=== PATIENT | female | born 1990 | race Caucasian/White ===

== ENCOUNTER 2019-09-07 20:21 | Emergency (ER) | payer OTHER ==
[2019-09-07] MEDS ORDERED: ACETAMINOPHEN 325 MG TABLET (FP) PO ONE (20:27)
[2019-09-07] MEDS ORDERED: ACETAMINOPHEN 325 MG TABLET (FP) ONE (20:30)
[2019-09-07 20:51] VITALS: BP 147/85; PULSE 106; TEMP 98.4; BMI 25.6
[2019-09-07 21:02] LABS: BASO % 0.4 % (0-2.0); EOS % 1.2 % (0-4.5); HEMOGLOBIN 12.6 GM/dl (10.7-15.3); LYMPH % 20.5 % (8-40); MCH 33.5 pg (25.7-33.7); MCHC 33.9 g/dl (32.0-36.0); MEAN CELL VOLUME 98.8 fl (80-96); MEAN PLT VOLUME 8.5 fl (7.5-11.1); MONO % 5.7 % (3.8-10.2); NEUT % 72.2 % (42.8-82.8); PLATELET COUNT 359 K/MM3 (134-434); RBC 3.75 M/mm3 (3.60-5.2); RDW 11.5 % (11.6-15.6); WHITE BLOOD COUNT 7.7 K/mm3 (4.0-10.8)
[2019-09-07 21:08] LABS: ALBUMIN 3.9 g/dl (3.4-5.0); BILIRUBIN,TOTAL 0.4 mg/dl (0.2-1); CALCIUM 8.2 mg/dl (8.5-10); CREATININE 0.6 mg/dl (0.55-1.3); POTASSIUM 3.2 mmol/L (3.5-5.1); TOT PROT 7.6 g/dl (6.4-8.2)
--- NOTE | 2019-09-07 21:44 | PDOC ---
Documentation entered by Estelle Koch SCRIBE, acting as scribe for Cesar Alas MD. Cesar Alas MD: This documentation has been prepared by the August mtz Xhesika, SCRIBE, under my direction and personally reviewed by me in its entirety. I confirm that the documentation accurately reflects all work, treatment, procedures, and medical decision making performed by me. History of Present Illness - General Chief Complaint: Chest Pain Stated Complaint: CHEST PAIN Time Seen by Provider: 09/07/19 20:25 History Source: Patient Exam Limitations: No Limitations - History of Present Illness Initial Comments: 09/07/19 20:32 The patient is a 29 year old female, currently 5 weeks , with a significant PMH of sjogrens (not on any meds), pituitary tumor who presents to the emergency department for chest pain since 1pm. 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 Pt notse the pain seems worse when she is lyaing back. Pt states she had the stomach virus recently -diarrhea until last night, she had a few episodes of nbnb vomiting a few days ago but had since resolved. The patient denies headache and dizziness. Denies fever, chills, cough, hemoptysis, leg swelling, abd pain, nausea, vomiting, diarrhea and constipation. Denies dysuria, frequency, urgency and hematuria. Allergies: NKDA Past History - Past Medical History Allergies/Adverse Reactions: Allergies Allergy/AdvReac Type Severity Reaction Status Date / Time No Known Allergies Allergy Verified 06/10/15 01:41 Home Medications: Ambulatory Orders Cabergoline 0.5 mg PO UTDICT 12/31/11 predniSONE [Deltasone -] 40 mg PO DAILY #4 tablet 06/10/15 - Psycho Social/Smoking Cessation Hx Smoking Status: No Smoking History: Never smoked Have you smoked in the past 12 months: No Number of Cigarettes Smoked Daily: 0 Hx Alcohol Use: Yes (OCCAS.) Drug/Substance Use Hx: No Substance Use Type: None Review of Systems - Review of Systems Able to Perform ROS?: Yes Comments:: 09/07/19 20:32 GENERAL/CONSTITUTIONAL: No fever or chills. No weakness. HEAD, EYES, EARS, NOSE AND THROAT: No change in vision. No ear pain or discharge. No sore throat. CARDIOVASCULAR: + chest pain or shortness of breath. RESPIRATORY: No cough, wheezing, or hemoptysis. GASTROINTESTINAL: No nausea, vomiting, diarrhea or constipation. GENITOURINARY: No dysuria, frequency, or change in urination. MUSCULOSKELETAL: No joint or muscle swelling or pain. No neck or back pain. SKIN: No rash NEUROLOGIC: No headache, vertigo, loss of consciousness, or change in strength/ sensation. ENDOCRINE: No increased thirst. No abnormal weight change. HEMATOLOGIC/LYMPHATIC: No anemia, easy bleeding, or history of blood clots. ALLERGIC/IMMUNOLOGIC: No hives or skin allergy. *Physical Exam - Vital Signs Last Vital Signs Temp Pulse Resp BP Pulse Ox 98.4 F 106 H 16 147/85 100 09/07/19 20:22 09/07/19 20:22 09/07/19 20:22 09/07/19 20:22 09/07/19 20:22 - Physical Exam 09/07/19 20:55 GENERAL: The patient is awake, alert, and fully oriented, Nontoxic - in no acute distress. HEAD: Normocephalic, atraumatic. EYES: extraocular movements intact, sclera anicteric, conjunctiva clear. ENT: Normal voice, Moist mucous membranes. NECK: Normal range of motion, supple LUNGS: Breath sounds equal, clear to auscultation bilaterally. No wheezes, no rhonchi, no rales. HEART: Regular rate and rhythm, normal S1 and S2 without murmur, rub or gallop. ABDOMEN: Soft, nontender, No guarding, no rebound. No CVA tenderness EXTREMITIES: Normal range of motion, no edema. Negative Homans, no calf tenderness BACK: Mild reproducible tenderness medial to the scapula. NEUROLOGICAL: No facial assymetry, Normal speech, PSYCH: Normal mood, normal affect. SKIN: Warm, Dry, normal turgor, ED Treatment Course - LABORATORY CBC & Chemistry Diagram: 09/07/19 20:35 09/07/19 20:35 - Medications Given in the ED: ED Medications Discontinued Medications Generic Name Dose Route Start Last Admin Trade Name Freq PRN Reason Stop Dose Admin Acetaminophen 650 mg 09/07/19 20:27 09/07/19 20:31 Tylenol - PO 09/07/19 20:28 650 mg ONCE ONE Administration Medical Decision Making - Medical Decision Making 09/07/19 20:55 29-year-old female 5 weeks gestation by dates presenting with a complaint of chest pain that is left-sided rating down her right arm That is pressure-like, without any associated shortness of breath, dyspnea residual, Hemoptysis, leg swelling, Fever, chills, cough. On exam patient is well-appearing, no distress. The patient's EKG was reviewed The patient's pulmonary exam is clear, no signs of diminished breath sounds worse sign suggestive of pneumothorax. Will obtain screening blood work we will give the patient Tylenol There is No clinical signs or symptoms suggestive of PE or DVT. Patient's vitals is noted for mild tachycardia, Likely secondary to dehydration. A portion of this note was documented by scribe services under my direction. I have reviewed the details of the note, within reason, and agree with the documentation with the following case summary and management plan written by me 09/07/19 22:01 Patient feeling better after Tylenol. The patient's blood work was reviewed her carbon dioxide is slightly low likely secondary to her diarrhea. Patient's potassium was also slightly low will give her a dose of K-Dur. Have her follow-up with her primary care doctor for further management. Return precautions were discussed I discussed the physical exam findings, ancillary test results and final diagnoses with the patient. I answered all of the patient's questions. The patient was satisfied with the care received and felt comfortable with the discharge plan and treatment plan. The patient will call their primary care physician within 24 hours to arrange follow-up and will return to the Emergency Department with any new, persistent or worsening symptoms. 09/07/19 22:16 Repeat vital signs were normal bp 118/75 pulse ox 100% T 99 P 81 Discharge - Discharge Information Problems reviewed: Yes Clinical Impression/Diagnosis: Chest pain Qualifiers: Chest pain type: unspecified Qualified Code(s): R07.9 - Chest pain, unspecified Condition: Improved Disposition: HOME - Admission No - Follow up/Referral Referrals: Tasha Reyes MD [Primary Care Provider] - - Patient Discharge Instructions Patient Printed Discharge Instructions: DI for Atypical Chest Pain Additional Instructions: Return to the emergency department immediately with ANY new, persistent or worsening symptoms Including any worsening of the chest pain shortness of breath , leg swelling or pain, coughing up blood or any other concerns. You MUST call and follow up with your doctor within 3-4 days for further evaluation of your symptoms. Results were discussed with you. Please make sure your doctor reviews the results of your emergency evaluation. Your Emergency Department visit is not complete without a follow up with your doctor. Print Language: NIGERIAN - Post Discharge Activity
--- NOTE | 2019-09-08 12:14 | EKG ---
Test Reason : Blood Pressure : / mmHG Vent. Rate : 089 BPM Atrial Rate : 089 BPM P-R Int : 158 ms QRS Dur : 080 ms QT Int : 362 ms P-R-T Axes : 070 076 037 degrees QTc Int : 440 ms NORMAL SINUS RHYTHM POSSIBLE LEFT ATRIAL ENLARGEMENT NONSPECIFIC ST AND T WAVE ABNORMALITY ABNORMAL ECG NO PREVIOUS ECGS AVAILABLE Confirmed by ELENO PIÑA MD ([id number]) on 09/08/2019 12:13:57 PM Referred By: DR JAY Confirmed By:ELENO PIÑA MD
== END 2019-09-07 22:16 | disposition home or self-care (01) ==
LOC: FER 20:21 → SUPCPDRO 20:21 → FER 22:16
DX: O26.891 Other specified pregnancy related conditions, first trimester (principal); Z3A.01 Less than 8 weeks gestation of pregnancy; R07.89 Other chest pain; D35.2 Benign neoplasm of pituitary gland; M35.00 Sjogren syndrome, unspecified
CPT/HCPCS: 36415; 80053; 82550; 84484; 85025; 93005; 99284-25